=== PATIENT | female | born 2000 | race Asian ===

== ENCOUNTER 2025-03-16 08:49 | Emergency (ER) | payer BC ==
[2025-03-16] MEDS ORDERED: Ketorolac Tromethamine 30 MG (1 mL) VIAL ONE (09:44)
[2025-03-16 09:53] LABS: #Basophils Less than 0.03 10x3/uL (0.0-0.2); #Eosinophils Less than 0.03 10x3/uL (0.0-0.5); #Monocytes 0.66 10x3/uL (0.0-1.1); #Neutrophils 9.95 10x3/uL (1.5-8.4); %Basophils 0.1 % (0.0-2.0); %Eosinophils 0.1 % (0.0-6.0); %Lymphocytes 8.5 % (18.0-47.0); %Monocytes 5.7 % (0.0-10.0); %Neutrophils 85.3 % (40.0-75.0); Hematocrit 34.1 % (34.9-44.5); Hemoglobin 11.4 g/dL (12.0-15.5); Mean Corpuscular Hemoglobin 26.4 pg (27.0-33.0); Mean Corpuscular Volume 78.9 fL (81.6-98.3); Platelet Count 320 10x3/uL (150-450); Red Blood Cell (RBC) Count 4.32 10x6/uL (3.90-5.03); White Blood Cell (WBC) Count 11.65 10x3/uL (3.5-10.5)
[2025-03-16] MEDS ORDERED: Iopamidol 300 61% 100 ML VIAL FS ONE (09:57)
[2025-03-16 10:15] LABS: ALT (SGPT) 8 U/L (Less than 34); AST (SGOT) 23 U/L (11-34); Albumin 4.0 g/dL (3.1-4.5); Alkaline Phosphatase 44 U/L (40-110); Anion Gap 16 mmol/L (10-20); BUN (Urea Nitrogen) 10 mg/dL (7.0-18.7); Bilirubin, Total 0.3 mg/dL (0.3-1.2); Calc. Creatinine Clearance 0 mL/min (70-130); Calcium 9.4 mg/dL (7.8-10.44); Carbon Dioxide 18 mmol/L (22-29); Chloride 106 mmol/L (98-107); Globulin 3.9 g/dL (2.4-3.5); Glucose 80 mg/dL (70-105); Potassium 3.8 mmol/L (3.5-5.1)
[2025-03-16 10:18] LABS: Sodium 136 mmol/L (136-145)
[2025-03-16] MEDS ORDERED: Dexamethasone 10 MG/ML VIAL ONE (11:22)
[2025-03-16] MEDS ORDERED: Clindamycin/D5W 900 MG in Premix 1 BAG IVPB SCH (11:45)
== END 2025-03-16 12:30 | disposition home or self-care (01) ==
LOC: CSHERS 08:49
DX: J36 Peritonsillar abscess (principal); R50.9 Fever, unspecified
CPT/HCPCS: 70491; 71045; 80053; 85025; 87428; 96365; 96375; J1100; J1885; J3490; Q9967